=== PATIENT | female | born 1960 | race Caucasian/White ===

== ENCOUNTER 2020-10-02 09:59 | Outpatient (CLI) | payer OTHER, SELFPAY | END 2020-10-02 10:00 | disposition home or self-care (01) | LOC: ANHCOVIDVC 09:59 | PROVIDERS: PCP Obstetrics & Gynecology Gynecology | DX: Z23 Encounter for immunization (principal) | CPT/HCPCS: 0001A; 91300 ==

== ENCOUNTER 2020-10-23 10:05 | Outpatient (CLI) | payer OTHER, SELFPAY | END 2020-10-23 10:06 | disposition home or self-care (01) | LOC: ANHCOVIDVC 10:05 | PROVIDERS: PCP Obstetrics & Gynecology Gynecology | DX: Z23 Encounter for immunization (principal) | CPT/HCPCS: 0002A; 91300 ==

== ENCOUNTER 2021-06-26 12:17 | Emergency (ER) | payer OTHER, SELFPAY ==
[2021-06-26 12:52] VITALS: BP 134/75; PULSE 89; RESP 18; TEMP 36.8; O2SAT 100
--- NOTE | 2021-06-26 13:14 | ED.URI ---
HPI - URI/Sore Throat General Chief Complaint: Upper Respiratory Infection Stated Complaint: sorethroat Time Seen by Provider: 06/26/21 13:14 Source: patient Mode of arrival: ambulatory Limitations: no limitations History of Present Illness HPI Narrative: Elisa is a 60-year-old female patient who ambulated into the [facility]. Patient states on 06/25/2021 she developed a dry scratchy throat. Patient states it became worse throughout the day. She had a Covid at home test which was negative. She denies any body aches or fever. Patient has been drinking water and using honey for relief. Patient has taken multiple at home Covid test since May and all were negative MD elicited complaint: sore throat Related Data Home Medications Medication Instructions Recorded Confirmed cholecalciferol (vitamin D3) 1,250 mcg PO WEEKLY 06/26/21 06/26/21 Allergies Allergy/AdvReac Type Severity Reaction Status Date / Time No Known Allergies Allergy Verified 06/26/21 13:24 Review of Systems Review of Systems: CONSTITUTIONAL: Denies body aches, fever, chills, or sweats. EYES: Denies visual changes, redness, or discharge. ENT: Denies rhinorrhea, +congestion, +sore throat, denies otalgia. CARDIOVASCULAR: Denies chest pain, palpitations, or edema. RESPIRATORY: Denies cough or dyspnea. GASTROINTESTINAL: Denies abdominal pain, nausea, vomiting, or diarrhea. GENITOURINARY: Denies dysuria or hematuria. SKIN: Denies rash, itching, or wounds. MUSCULOSKELETAL: Denies back pain, joint pain, or myalgia. NEUROLOGIC: Denies headache, numbness, tingling, or weakness. PSYCH: Denies depression or anxiety. All systems reviewed & are unremarkable except as noted in HPI and below PMFSH Comments At time of signature, I have reviewed and agree with nursing past medical, surgical, social and family history unless otherwise noted. Please see nursing chart for further information. There is no relevant family history pertinent to the presenting complaint Exam Narrative: GENERAL: Well-appearing, well-nourished, and in no acute distress. HEAD: Normocephalic, atraumatic. EYES: EOMI. No redness or drainage. Conjunctivae normal. ENT: Mucous membranes pink and moist. Nares clear. No rhinorrhea. TMs normal bilaterally. Posterior pharynx mildly erythemic , normal white exudate noted Uvula midline. NECK: Normal AROM. Supple. No lymphadenopathy. CHEST: No respiratory distress. Clear to auscultation. HEART: Regular rate and rhythm. No murmur appreciated. Normal peripheral pulses. ABDOMEN: Soft, nontender, nondistended, normal active bowel sounds. MUSCULOSKELETAL: No bony tenderness. EXTREMITIES: Normal range of motion. No edema. SKIN: Warm, dry, no rash. Capillary refill normal. Normal skin turgor. NEURO: No focal deficits. Alert and oriented x3. Gait steady. PSYCH: Normal affect. No signs of depression or anxiety. Course Course Emergency Course: Patient was examined. Influenza a and B and rapid strep were obtained. Patient has used multiple at home Covid test and all were negative. Level of Care: Express Care Visit Vital Signs Vital signs: Vital Signs Temperature 36.8 C 06/26/21 12:52 Pulse Rate 89 06/26/21 12:52 Respiratory Rate 18 06/26/21 12:52 Blood Pressure 134/75 06/26/21 12:52 Pulse Oximetry 100 06/26/21 12:52 Temperature 36.8 C 06/26/21 12:52 Pulse Rate 89 06/26/21 12:52 Respiratory Rate 18 06/26/21 12:52 Blood Pressure 134/75 06/26/21 12:52 Pulse Oximetry 100 06/26/21 12:52 Reviewed. Pt has been instructed to follow up with her PCP regarding her elevated blood pressure today. MDM - URI/Sore Throat MDM Narrative Medical decision making narrative: Patient took a wrap bed Covid test at home this morning that was negative. Influenza a/B are negative. Rapid strep is negative. Throat culture will be sent to lab. Covid PCR will also be sent. Patient will be notified of the results in 24 to
[2021-06-27 16:23] LABS: SARS-CoV-2 RNA PCR Negative
== END 2021-06-26 13:49 | disposition home or self-care (01) ==
PROVIDERS: Emergency Provider Nurse Practitioner Family; PCP Internal Medicine
DX: J02.9 Acute pharyngitis, unspecified (principal); Z20.822 Contact with and (suspected) exposure to COVID-19; N80.9 Endometriosis, unspecified
CPT/HCPCS: 87081; 87804; 87880; 99213; C9803; G0463; U0003; U0005